=== PATIENT | female | born 1975 | race Two or more races ===

== ENCOUNTER 2016-06-08 20:54 | Emergency (ER) | payer OTHER ==
[~2016-06-08] VITALS: Ht 154.9 cm; Wt 79.4 kg
--- NOTE | 2016-06-08 21:50 | PHYS DOC ---
General Chief Complaint: BACK PAIN OR INJURY Stated Complaint: BACK PAIN Time Seen by MD: 21:35 Source: patient, family Problems: History of Present Illness Initial Comments Patient with for back pain. Patient is a history of back pain problems and purely an MRI about 4 months ago that showed a bulging disc. She normally takes Naprosyn and baclofen for this at home. She says today about 11:00 she is bending overall she was doing her hair, and felt increasing pain in her left low back and buttock area. She says this is worse than her usual pain. She says his beta difficulty around the house, though she has been able to get up on her feet and go to the bathroom today at home with difficulty. She has no history of direct injury or trauma to the back. There's been no fall. She has no shooting pains down the leg, and she notes no complaints of numbness tingling or weakness within the left lower extremity. She's had no fever chills URI symptoms or cough. There's no chest pain or shortness of breath. No nausea vomiting or abdominal pain today. There is no change amount or bladder habits no calmness. Her last period is current. She denies chance of . Other than as previously described is no focal extremity or neurologic complaints. Patient's taken her baclofen and Naprosyn at home without help. She is also uses Lidocaine cream without help. She notes that any kind of motion makes her back pain worse. There is no other increasing or decreasing factors. Patient's past medical history is work for chronic back pain as previously described. She is nonsmoker and an occasional social user of ethanol. Allergies: Coded Allergies: amoxicillin (Verified Allergy, Unknown, 06/08/16) clavulanic acid (Verified Allergy, Unknown, 06/08/16) Past Medical History Medical History: other Social History Smoker: non-smoker Alcohol: occasionally Review of Systems All Other Systems: Reviewed and Negative Physical Exam General Appearance: WD/WN, no apparent distress Neck: full range of motion, supple, normal inspection Respiratory: lungs clear, normal breath sounds, no respiratory distress Cardiovascular: regular rate, rhythm, no edema Gastrointestinal: non tender, soft, no organomegaly Back: no CVA tenderness, no vertebral tenderness, other Extremities: non-tender, normal inspection, no pedal edema Neurologic/Psychiatric: no motor/sensory deficits, alert, normal mood/affect, oriented x 3 Skin: normal color Lymphatic: no adenopathy Comments Generally this is a well-developed well-nourished female who looks mildly uncomfortable with back pain but in no acute distress. Vitals are as noted. Pertinent findings on physical exam shows neck to be fully nontender. Chest is clear to auscultation bilaterally. Cardiac [place] exam shows regular rate and rhythm without murmur. The abdomen is soft and nontender without masses or organomegaly. There is no perineal findings. Back shows only minimal low lumbosacral vertebral tenderness. She is mild to moderately tender over the low left paraspinal musculature in the gluteal aspect. The right side is clear. There is no signs of trauma. There is no deformity seen. Extremity show no rashes, cyanosis, or edema. Lower extremity DTRs are 3+ or 4+ equal bilaterally. Strength 5 over 5 equal all sites tested, with some duration decreased on the left due to pain in the low back and buttock area. There are no gross sensory deficits. Straight leg raising is positive on the left. She is initially not ambulated in the ED. Neurologic exam finds her to be awake alert oriented and cooperative. Remainder of physical exam is clinically unremarkable. Orders, Labs, Meds Old charts notes no prior ER visits within the current system. Urinalysis and test are negative. 2330 Patient resting comfortable in the ER. She says she has some mild to moderate pain relief with Toradol and Norflex. I indicated often we cannot fully resolved back pain in the ED, but hopefully we can at least make her feel well enough to get some rest at home. I discussed with her most likely cause her discomfort is an exacerbation of her chronic low back pain, possibly with musculoskeletal strain. Fourthly, she is neurologically intact, there is no history of direct blow or trauma, and I don't think there is any advantage to imaging at this time. Patient her voice understanding. She is on baclofen and Naprosyn at home without help. I am going to go ahead and write her prescription for 3 day supply of Lortab as well as Flexeril. I did discuss with them that she cannot take these medicines while she is currently taking the Naprosyn and baclofen, and I would stop the latter medications for the next 3 days while she is taking her new prescriptions. She her both voice understanding of this caution. We also discussed additional home care including rest, ice to the back for the first 48 hours followed by heat, gentle stretching exercises the back. She voices understanding of the need to follow- up with primary care or return to the ER sooner as needed if worsen anyway. She would like a work excuse and I'm willing to give her a work excuse for tomorrow. She looks improved, still mildly uncomfortable, but neurologically stable and okay for discharge home at this time. EDGARDO URENA MD Jun 08, 2016 21:50
[2016-06-08] MEDS ORDERED: ORPHENADRINE CITRATE 60 MG/2 ML VIAL. IM ONE (22:20)
[2016-06-08] MEDS ORDERED: KETOROLAC 60 MG/2 ML VIAL. IM ONE (22:20)
[2016-06-08 23:19] LABS: BACTERIA,URINE 0 /HPF (0-FEW); BILIRUBIN,URINE NEG (NEG); CLARITY,URINE CLEAR; COLOR,URINE YELLOW; GLUCOSE,URINE NEG (NEG); NITRITE,URINE NEG (NEG); RBC,URINE 0 /HPF (0-2); SQUAMOUS EPITHELIAL CELL,UR FEW /LPF; UROBILINOGEN,URINE 0.2 mg/dL (0.2 mg/dL); WBC,URINE OCC /HPF (0-4)
[2016-06-08 23:40] VITALS: BP 110/67
[2016-06-08] MEDS ORDERED: HYDROCODONE/APAP 7.5/325MG TABLET. ONE (23:40)
[2016-06-08] MEDS ORDERED: CYCLOBENZAPRINE 10 MG TABLET. ONE (23:41)
[2016-06-08] MEDS ORDERED: HYDROCODONE/APAP 7.5/325MG TABLET. PO ONE (23:45)
[2016-06-08] MEDS ORDERED: CYCLOBENZAPRINE 10 MG TABLET. PO ONE (23:45)
== END 2016-06-08 23:46 | disposition home or self-care (01) ==
LOC: ER 20:54
DX: G89.29 Other chronic pain (principal); M54.5 Low back pain; Z88.1 Allergy status to other antibiotic agents
CPT/HCPCS: 81001; 84703; 96372; 99284; J1885; J2360; 81025